=== PATIENT | female | born 1995 | race Caucasian/White ===

== ENCOUNTER 2021-05-20 19:27 | Outpatient (CLI) | payer BC ==
[2021-05-20 21:06] VITALS: BP 133/65; PULSE 96; RESP 16; TEMP 97.1
--- NOTE | 2021-06-17 09:32 | P.MSEPDOC ---
Presenting Problems - Arrival Data Date of Arrival on Unit: 05/20/21 Time of Arrival on Unit: 19:27 Mode of Transport: Ambulatory - Complaint OB-Reason for Admission/Chief Complaint: Decreased Movement Medical History - Gestational Age Gestational Age by BRO (wks/days): 27 Weeks and 5 Days Review of Systems - Review of Systems Constitutional: No problems Breast: No problems ENT: No problems Cardiovascular: No problems Respiratory: No problems Gastrointestinal: No problems Genitourinary: No problems Musculoskeletal: No problems Neurological: No problems Skin: No problems Vital Signs - Temperature Temperature: 97.1 F Temperature Source: Temporal Artery Scan - Pulse Pulse Oximetery Pulse Rate: 96 Pulse Assessment Method: Automatic Cuff - Respirations Respiratory Rate: 16 Oxygen Delivery Method: Room Air O2 Sat by Pulse Oximetry: 100 - Blood Pressure Right Arm Blood Pressure: 133/65 Blood Pressure Mean: 87 Blood Pressure Source: Automatic Cuff Medical Screen Scoring - Cervical Exam Membranes: Intact - Assessment - Baby A Baseline FHR: 145 Heart Rate - NICHD Category: Category I (Normal) Physician Notification - Physician Notified Physician Notified Date: 05/20/21 Physician Notified Time: 20:00 Physician: Alison Gan New Order Received: Yes - Notification Comment Comment: Dr. Gan updated re: pt c/o decreased movement, last felt movement about 2 hrs ago, DOM, pt receives care with Dr. Cardoza at [facility], no bleeding, leaking of fluid, denies pain, abdomen soft to palpation, FHR 145 bpm and reports of positive movement since arrival to triage. Orders received to d/c pt home and follow up with Dr. Cardoza as scheduled Maternal Triage Index - Maternal Triage Index Presenting for scheduled procedure w/no complaint: No - Stat/Priority 1 Stat Priority 1: No - Urgent/Priority 2 Urgent Priority 2: Yes Provider Notified: Alison Gan Provider Notified Time: 20:00 Criteria Met for Priority 2: c/o decreased movement Disposition - Disposition OB Disposition: Discharge to home Discharge Date: 05/20/21 Discharge Time: 20:10 I agree with the RN Medical Screening Exam: Yes Case reviewed; plan agreed upon as documented in EMR&OBIX.: Yes Diagnosis: DECREASED MOVEMENTS, SECOND TRIMESTER, FETUS 1
== END 2021-05-20 20:10 | disposition home or self-care (01) ==
LOC: FBPOP 19:27
PROVIDERS: ATTEND Obstetrics & Gynecology Obstetrics
DX: O36.8120 Decreased fetal movements, second trimester, not applicable or unspecified (principal); Z3A.27 27 weeks gestation of pregnancy
CPT/HCPCS: 99213